=== PATIENT | female | born 1965 ===

== ENCOUNTER 2022-04-23 11:35 | Emergency (ER) | payer SELFPAY ==
[~2022-04-23] VITALS: Ht 154.9 cm; Wt 67.1 kg
--- NOTE | 2022-04-23 11:43 | NUR ---
here for dizziness and headache 09/20, describes it as room spinning, hx of htn and hypoth, no gross neuro deficits, nsr on cm, o2 sat 99% ra, sr up times 2, awaits md brooks
[2022-04-23 11:44] VITALS: BP 161/78
[2022-04-23] MEDS ORDERED: DIAZEPAM PFS 10 MG/2 ML SYR IVP ONE (12:10)
[2022-04-23 12:28] LABS: BASOPHILS % (AUTO) 0.4 % (0.0-2.0); EOSINOPHILS # (AUTO) 0.1 K/uL (0-0.4); EOSINOPHILS % (AUTO) 2.3 % (0.0-4.0); HEMOGLOBIN 12.2 g/dL (12.0-16.0); LYMPHOCYTES % (AUTO) 38.1 % (20.5-51.1); MEAN CORPUSCULAR HEMOGLOBIN 30 pg (27-31); MEAN CORPUSCULAR HGB CONC 34 g/dL (33-37); MEAN CORPUSCULAR VOLUME 87.8 fL (80-94); MONOCYTES # (AUTO) 0.3 K/uL (0.8-1.0); MONOCYTES % (AUTO) 5.4 % (1.7-9.3); NEUTROPHILS # (AUTO) 2.8 K/uL (1.8-7.7); NEUTROPHILS % (AUTO) 53.8 % (42.2-75.2); PLATELET COUNT (AUTO) 312 K/uL (140-450); RED CELL DISTRIBUTION WIDTH 13.2 % (11.6-13.7); WHITE BLOOD COUNT (AUTO) 5.2 K/uL (4.8-10.8)
--- NOTE | 2022-04-23 12:37 | NUR ---
Patient requesting to contact sister Lolly at [phone]. No answer left a voicemail.
[2022-04-23 13:10] LABS: ANION GAP 12.8 (8-16); ASPARTATE AMINOTRANSFERASE 17 U/L (15-37); CHLORIDE 102 mmol/L (98-107); CREATININE 0.6 mg/dL (0.6-1.3); GFR ARICAN-AMERICAN 134 mL/min (>90); GLUCOSE 134 mg/dL (74-106); MAGNESIUM 1.6 mg/dL (1.8-2.4); PHOSPHORUS 3.5 mg/dL (2.5-4.9); POTASSIUM 3.8 mmol/L (3.5-5.1); SODIUM SERUM 141 mmol/L (136-145); TOTAL BILIRUBIN 0.4 mg/dL (0.0-1.0); UREA NITROGEN, BLOOD 10 mg/dL (7-18)
[2022-04-23 13:43] LABS: ALBUMIN 3.7 g/dL (3.4-5.0)
[2022-04-23] MEDS ORDERED: CETI10CA17 PO (14:04)
[2022-04-23] MEDS ORDERED: MUC600 PO (14:04)
[2022-04-23 14:33] VITALS: BP 133/65
--- NOTE | 2022-04-23 14:33 | NUR ---
Patient discharged with v/s stable. Written and verbal after care instructions given and explained. Patient alert, oriented and verbalized understanding of instructions. Ambulatory with steady gait. All questions addressed prior to discharge. ID band removed. Patient advised to follow up with PMD. Rx of cetirizine, guaifenesin (sent) given. Patient educated on indication of medication including possible reaction and side effects. Opportunity to ask questions provided and answered. copy of work note, labs and imaging given
== END 2022-04-23 14:32 | disposition home or self-care (01) ==
LOC: MED 11:35
DX: R42 Dizziness and giddiness (principal); I10 Essential (primary) hypertension; E11.9 Type 2 diabetes mellitus without complications; E03.9 Hypothyroidism, unspecified; Z79.4 Long term (current) use of insulin; Z79.899 Other long term (current) drug therapy
CPT/HCPCS: 36415; 70450; 71045; 80053; 83735; 84100; 84484; 85025; 93005; 96365; 99285; J3360; Q0092